=== PATIENT | male | born 1995 | race Asian ===

== ENCOUNTER 2024-04-09 06:28 | Day surgery (SDC) | payer OTHER ==
[~2024-04-09] VITALS: Ht 177.8 cm; Wt 63.5 kg
[2024-04-09] VITALS (9 sets, daily range): BP systolic 102–117; BP diastolic 54–72; PULSE 60–70; RESP 15–18; TEMP 97.4–98.1
[2024-04-09] MEDS ORDERED: ESCI-8 PO (06:59)
[2024-04-09] MEDS ORDERED: FERR-82 PO (06:59)
[2024-04-09] MEDS ORDERED: LEVO125C4 PO (06:59)
[2024-04-09] MEDS ORDERED: MULT-1203 PO (06:59)
[2024-04-09] MEDS: 0.9%NACL 1000ML 1,000 ML IV ONE (07:07)
[2024-04-09] MEDS ORDERED: proPOFol 10 MG/ML 20ML VIAL IV ONE (09:06)
[2024-04-09] MEDS ORDERED: LIDOCAINE HCL 1% 20 ML VIAL ONE (09:08)
== END 2024-04-09 11:00 | disposition home or self-care (01) ==
LOC: DAH 06:28
PROVIDERS: ATTEND Internal Medicine Gastroenterology
DX: R19.4 Change in bowel habit (principal); K52.9 Noninfective gastroenteritis and colitis, unspecified; K29.50 Unspecified chronic gastritis without bleeding; K64.9 Unspecified hemorrhoids; E61.1 Iron deficiency; K31.89 Other diseases of stomach and duodenum; E03.9 Hypothyroidism, unspecified; R10.13 Epigastric pain; F41.9 Anxiety disorder, unspecified; E78.5 Hyperlipidemia, unspecified; Z79.899 Other long term (current) drug therapy
CPT/HCPCS: 43239; 45380; J7030 ×2; J2704; A4620; A4215; A4223; A7002; A4222; A4221; A4663; A4606; J3490

== ENCOUNTER → 2024-05-02 | Outpatient (CLI) | payer OTHER ==
[~2024-05-02] MED LIST: ESCI-8 PO; FERR-82 PO; LEVO125C4 PO; MULT-1203 PO
== END | disposition home or self-care (01) ==
LOC: LAB 11:15
PROVIDERS: ATTEND Internal Medicine Gastroenterology
DX: E61.1 Iron deficiency (principal)
CPT/HCPCS: 82270

== ENCOUNTER → 2024-08-12 | Outpatient (CLI) | payer OTHER ==
[2024-08-12 10:32] LABS: BASOPHILS # (AUTO) 0.07 K/uL (0.00-0.20); EOSINOPHILS # (AUTO) 0.14 K/uL (0.00-0.70); HEMATOCRIT 43.2 % (42-54); IMMATURE GRANULOCYTE ABSOLUTE 0.01 K/uL (0-1); LYMPHOCYTES # (AUTO) 2.8 K/uL (1.0-4.8); LYMPHOCYTES % (AUTO) 39.3 % (21.0-51.0); MEAN CORPUSCULAR HEMOGLOBIN 29.1 pg (27.0-33.0); MEAN CORPUSCULAR HGB CONC 32.9 g/dL (32.0-36.0); MEAN CORPUSCULAR VOLUME 88.5 fL (79-99); MONOCYTES # (AUTO) 0.7 K/uL (0.1-1.0); MONOCYTES % (AUTO) 9.6 % (3.0-13.0); NEUTROPHILS # (AUTO) 3.4 K/uL (1.8-7.7); PLATELET COUNT (AUTO) 242 K/uL (130-400); RED BLOOD CELL COUNT(AUTO) 4.88 MIL/uL (4.50-6.20); RED CELL DISTRIBUTION WIDTH 12.6 % (11.0-15.5); WHITE BLOOD COUNT (AUTO) 7.1 K/uL (4.8-10.8)
[2024-08-12 10:40] LABS: % IRON SATURATION 32.1 % (30-44)
[2024-08-12 10:44] LABS: CHOLESTEROL 180 mg/dL (<200); HDL CHOLESTEROL 55 mg/dL (29-71); LDL DIRECT 118 mg/dL (0-99); TRIGLYCERIDES 43 mg/dL (30-200)
[2024-08-12 10:47] LABS: HEMOGLOBIN A1C 5.4 % (4.0-6.0)
== END | disposition home or self-care (01) ==
LOC: LAB 09:14
PROVIDERS: ATTEND Internal Medicine Gastroenterology
DX: E61.1 Iron deficiency (principal)
CPT/HCPCS: 36415; 80061; 82784; 83036; 83516; 83540; 83550; 85025; 86231; 86364

== ENCOUNTER → 2024-12-03 | Outpatient (CLI) | payer OTHER ==
[~2024-12-03] MED LIST changes: -LEVO125C4 PO; +LEVO125C5 PO
[2024-12-03 11:26] LABS: BASOPHILS # (AUTO) 0.07 K/uL (0.00-0.20); BASOPHILS % (AUTO) 1.4 % (0.0-5.0); EOSINOPHILS # (AUTO) 0.12 K/uL (0.00-0.70); EOSINOPHILS % (AUTO) 2.5 % (0.0-8.0); HEMATOCRIT 41.9 % (42-54); IMMATURE GRANULOCYTE ABSOLUTE 0.01 K/uL (0-1); LYMPHOCYTES # (AUTO) 1.8 K/uL (1.0-4.8); LYMPHOCYTES % (AUTO) 36.6 % (21.0-51.0); MEAN CORPUSCULAR HGB CONC 33.2 g/dL (32.0-36.0); MEAN CORPUSCULAR VOLUME 87.5 fL (79-99); MONOCYTES # (AUTO) 0.6 K/uL (0.1-1.0); MONOCYTES % (AUTO) 11.5 % (3.0-13.0); NEUTROPHILS # (AUTO) 2.3 K/uL (1.8-7.7); NEUTROPHILS % (AUTO) 47.8 % (40.0-77.0); PLATELET COUNT (AUTO) 208 K/uL (130-400); RED BLOOD CELL COUNT(AUTO) 4.79 MIL/uL (4.50-6.20); RED CELL DISTRIBUTION WIDTH 12.8 % (11.0-15.5); WHITE BLOOD COUNT (AUTO) 4.9 K/uL (4.8-10.8)
[2024-12-03 11:39] LABS: BILIRUBIN,TOTAL 0.4 mg/dL (0.2-1.0); CREATININE 0.8 mg/dL (0.5-1.3); POTASSIUM 4.5 mmol/L (3.5-5.1); TOTAL PROTEIN, SERUM 7.4 g/dL (6.0-8.3)
[2024-12-03 12:26] LABS: HIV 1&2 ANTIBODY Non-Reactive (Negative); HIV-1 p24 Antigen Non-Reactive (Negative)
== END | disposition home or self-care (01) ==
LOC: LAB 10:38
PROVIDERS: ATTEND Internal Medicine
DX: D72.819 Decreased white blood cell count, unspecified (principal)
CPT/HCPCS: 36415; 80053; 85025; 86038; 86215; 86235; 86431; 86701; 87390; 88184; 88185; 88189

== ENCOUNTER → 2024-12-17 | Outpatient (CLI) | payer OTHER ==
--- NOTE | 2024-12-17 14:09 | HMCIMG ---
US ABDOMINAL COMPLETE HISTORY: Abdominal pain COMPARISON: None TECHNIQUE: Multiple transverse and longitudinal ultrasound images of the abdomen were obtained. FINDINGS: Abdominal aorta and inferior vena cava are unremarkable. The visualized portion of the pancreas is within normal limits. Liver measures 14.1 cm. There is gallbladder polyp measuring 6 x 6 x 4 mm. No gallstone is seen. Common duct measures 3 mm. No evidence of gallbladder wall thickening is seen. Both kidneys are seen. Right kidney measures 10.7 x 4.3 x 4.8 cm. Left kidney measures 10.3 x 5.3 x 4.3 cm. No hydronephrosis is seen of the both kidneys. The spleen is grossly unremarkable. IMPRESSION: 1. Small gallbladder polyp. No gallstone or ductal dilatation is seen. 2. No hydronephrosis is seen.
== END | disposition home or self-care (01) ==
LOC: RAH 12:46
PROVIDERS: ATTEND Hospitalist
DX: K82.4 Cholesterolosis of gallbladder (principal); R10.84 Generalized abdominal pain; D50.9 Iron deficiency anemia, unspecified; Z00.01 Encounter for general adult medical examination with abnormal findings
CPT/HCPCS: 76700